=== PATIENT | male | born 1985 | race Hispanic/Latino ===

== ENCOUNTER 2023-04-01 00:50 | Emergency (ER) | payer SELFPAY ==
[2023-04-01] MEDS ORDERED: Lidocaine 1% (PF) 30 ML VIAL ONE (01:09)
[2023-04-01] MEDS ORDERED: Bacitracin 1 PK ONE (01:18)
[2023-04-01] MEDS ORDERED: Ketorolac Tromethamine 30 MG/ML VIAL ONE (01:36)
== END 2023-04-01 01:58 | disposition home or self-care (01) ==
LOC: CSHERS 00:50
DX: L60.0 Ingrowing nail (principal); L03.032 Cellulitis of left toe
CPT/HCPCS: 96372; 99283; J1885; J2001